=== PATIENT | female | born 1970 | race American Indian/Alaskan Native ===

== ENCOUNTER 2018-12-04 06:13 | Day surgery (SDC) | payer OTHER ==
[2018-12-04] MEDS ORDERED: ASPIRIN EC 325 MG TAB PO ONE (06:32)
[2018-12-04] MEDS ORDERED: SODIUM CHLORIDE 0.9% 500 ML 500 ML IV SCH (07:00)
[2018-12-04 07:14] LABS: Basophils % (Auto) 0.8 % (0.0-1.8); Eosinophils # (Auto) 0.1 K/mm3 (0.0-0.4); Eosinophils % (Auto) 2.5 % (0.0-4.3); Hematocrit 34.5 % (30.3-42.9); Hemoglobin 11.4 gm/dl (10.1-14.3); Lymphocytes # (Auto) 1.6 K/mm3 (1.2-5.4); Lymphocytes % (Auto) 44.5 % (13.4-35.0); Mean Corpuscular HGB Conc 33 % (30-34); Mean Corpuscular Volume 88 fl (79-97); Monocytes # (Auto) 0.3 K/mm3 (0.0-0.8); Monocytes % (Auto) 9.1 % (0.0-7.3); Platelet Count 215 K/mm3 (140-440); Red Blood Count 3.94 M/mm3 (3.65-5.03); Red Cell Distribution Width 15.8 % (13.2-15.2)
[2018-12-04 07:24] LABS: INR 0.93 (0.87-1.13)
[2018-12-04 07:52] LABS: BUN/Creatinine Ratio 22; Blood Urea Nitrogen 13 mg/dL (7-17); Calcium 9.1 mg/dL (8.4-10.2); Hemolysis Index 0
[2018-12-04] MEDS ORDERED: VERAPAMIL 5 MG/2 ML INJ ONE (08:19)
[2018-12-04] MEDS ORDERED: NITROGLYCERIN SYRINGE 3 ML ONE (08:19)
[2018-12-04] MEDS ORDERED: HEPARIN/NS 5000 UNIT/500ML 1,000 ML IR ONE (08:19)
[2018-12-04] MEDS ORDERED: LIDOCAINE (2%) 20 MG/1 ML VIAL 20 ML MDV INFILTRATI ONE (08:19)
[2018-12-04] MEDS ORDERED: HEPARIN 10,000 UNITS/10 ML VIAL ONE (08:19)
[2018-12-04] MEDS ORDERED: MIDAZOLAM 2 MG/2 ML INJ ONE (08:20)
[2018-12-04] MEDS: fentaNYL 100 MCG/2 ML INJ ONE ×2 (08:51→08:55)
--- NOTE | 2018-12-04 09:10 | Short Stay Summary ---
Short Stay Documentation Date of service: 12/04/18 - History H&P: obtained from office - Allergies and Medications Current Medications: Allergies No Known Allergies Allergy (Unverified 01/09/18 09:02) Home Medications Medication Instructions Recorded Confirmed Last Taken Type Ferrous Sulfate [Iron 325 MG] 325 mg PO DAILY 12/04/18 12/04/18 12/03/18 History Omeprazole 40 mg PO DAILY 12/04/18 12/04/18 12/03/18 History Sucralfate [Carafate] 1 gm PO DAILY 12/04/18 12/04/18 12/03/18 History Active Medications Sodium Chloride (Nacl 0.9% 500 Ml) 500 mls @ 50 mls/hr IV DIRECT AMBERLY Stop: 12/04/18 16:59 Last Admin: 12/04/18 07:36 Dose: 50 mls/hr Documented by: - Brief post op/procedure progress note Date of procedure: 12/04/18 Pre-op diagnosis: cp Post-op diagnosis: other (normal coronaries) Procedure: C - see dictated cath report Anesthesia: local Estimated blood loss: none Condition: stable - Disposition Condition at discharge: Good Disposition: DC-01 TO HOME OR SELFCARE - Discharge Diagnoses (1) Normal coronary arteries Status: Chronic Short Stay Discharge Plan Activity: advance as tolerated Wound: open to air, keep clean and dry, per your surgeon's advice Follow up with: DEJUAN CASTRO MD [Primary Care Provider] - 7 Days Forms: CardCath PCI D/C Instructions
[2018-12-04] MEDS ORDERED: ACETAMINOPHEN 325 MG TAB PO NR (09:58)
[2018-12-04 11:45] VITALS: BP 127/73
--- NOTE | 2018-12-04 12:34 | Cardiac Catherization Report ---
LEFT HEART CATHETERIZATION ORDERING PHYSICIAN: Dr. Casillas. CLINICAL INFORMATION: This is a 48-year-old [place]ian female with recurrent chest pain despite negative stress test here for cardiac catheterization for suspected coronary artery disease given recurrent chest pain. Left heart catheterization performed with moderate sedation, 1 mg Versed and 100 mcg of fentanyl. Total sedation time was 15 minutes, started at 8:50 a.m., finished at 9:05 a.m. Procedure was done via the right radial artery, sterile technique, local anesthesia, 6-Tunisian radial sheath inserted. PROCEDURE FINDINGS: Left system, JL3.5 catheter. Left main is large and patent, bifurcates into large LAD that is patent and normal. Diagonal 1 is a large caliber vessel, patent, normal. Circumflex is a large caliber vessel, patent, goes into a large OM1 with upper and lower branch, patent. Distal circ is a medium caliber and patent. RCA has a soto's crook, large dominant vessel, is patent and normal. PDA, PLV are medium caliber vessels, patent. LV gram done in [place] and [place] view shows normal LV function, LVEDP of 20-25 mmHg, LV is 146 mmHg. Aortic is 146/83, no gradient across the aortic valve on pullback. EF is 55-60%. A 5-Tunisian catheters all taken over a guidewire. A 6-Tunisian radial sheath was discontinued. Radial band applied. No hematoma, no bleeding. SUMMARY: Normal coronaries, left main patent, LAD patent, diagonal patent, circumflex patent, OM1 patent, RCA patent, normal LV function, noncardiac chest pain. JOB# [id number] FERNANDO/VANE
== END 2018-12-04 12:25 | disposition home or self-care (01) ==
LOC: CATHLABREC 06:13
PROVIDERS: ATTEND Internal Medicine
DX: R07.89 Other chest pain (principal); K21.9 Gastro-esophageal reflux disease without esophagitis; D50.9 Iron deficiency anemia, unspecified; Z79.899 Other long term (current) drug therapy; Z98.890 Other specified postprocedural states
CPT/HCPCS: 36415; 80048; 85025; 85610; 93005; 93010; 93458; 99156; C1894; J1644; J2250; J3010; J7040; Q9967

== ENCOUNTER 2021-08-02 10:15 | Outpatient (CLI) | payer OTHER ==
--- NOTE | 2021-08-02 14:51 | Ultrasound Report ---
ULTRASOUND RENAL INDICATION / CLINICAL INFORMATION: ABDOMINAL PAIN R31.9 R10.9. COMPARISON: CT abdomen/pelvis 02/20/2018. FINDINGS: RIGHT KIDNEY: Length = 12.9 cm. - Echogenicity: Normal. - Parenchymal Thickness: Normal. - Hydronephrosis: Mild pelviectasis. - Cyst / Mass: None. - Stones: None seen. LEFT KIDNEY: Length = 12.2 cm. - Echogenicity: Normal. - Parenchymal Thickness: Normal. - Hydronephrosis: None. - Cyst / Mass: None. - Stones: None seen. Vascular calcifications are noted in the midpole. URINARY BLADDER: No significant abnormality. FREE FLUID: None. ADDITIONAL FINDINGS: Diffusely echogenic appearance of the liver. IMPRESSION: 1. Mild right pelviectasis of unknown etiology. 2. Diffusely echogenic appearance of the liver, most commonly seen with steatosis. Scribed by: Yudelka Dorsey RDMS, LINN, FELIZ Scribed: 08/02/2021 1:19 PM I have reviewed the images, agree with this report, and edited this report as needed. Signer Name: Christiano Martin MD Signed: 08/02/2021 2:46 PM Workstation Name: [id number]
== END 2021-08-02 10:16 | disposition home or self-care (01) ==
LOC: US 10:15
PROVIDERS: ATTEND Internal Medicine
DX: N28.89 Other specified disorders of kidney and ureter (principal); R31.9 Hematuria, unspecified; K76.0 Fatty (change of) liver, not elsewhere classified
CPT/HCPCS: 76770